=== PATIENT | male | born 1955 | race Caucasian/White ===

== ENCOUNTER 2016-12-10 16:31 | Inpatient (IN) | payer OTHER ==
[~2016-12-10] VITALS: Ht 175.3 cm; Wt 81.0 kg
[~2016-12-10 16:31] MED LIST: BENETAB PO; FURO20TA PO; LACTCAP8 PO; PANT40TA3 PO; Spironolactone PO; ZITH250T PO
[2016-12-10 16:32] VITALS: BP 97/70; PULSE 98; RESP 18; TEMP 97.6; O2SAT 98
--- NOTE | 2016-12-10 16:35 | PD ---
HPI Chief Complaint: GI BLEED Time Seen by Provider: 16:34 Travel History International Travel<30 days: No Contact w/Intl Traveler<30days: No Traveled to known affect area: No History of Present Illness HPI 61-year-old male with history of alcohol cirrhosis, HTN, GI bleed, coronary artery disease with stent placement, tobacco dependency, presents to the emergency department for evaluation of GI bleed. Patient reports beginning having alphonso red emesis this morning as well as black tarry stools. Patient was seen and evaluated, discharged October 23, 2016 following a GI bleed. He has been unable to follow-up and has not filled any medication since hospitalization, stating that he cannot afford them. He states he has been increasingly weak, absent the dizziness, some mild shortness of breath feels as though his abdomen is pushing up on his diaphragm. Patient has a rotund abdomen and states it has been worsening since discharge in October. Reports no fever or chills. He does report abdominal pain, generalized, constant. He has no other symptoms to report. PFSH Past Medical History Heart Rhythm Problems: No Cancer: No Cardiovascular Problems: Yes High Cholesterol: No Chest Pain: No Congestive Heart Failure: No Endocrine: No Gastrointestinal Disorders: Yes (Hepatomegaly, VARICES) GERD: No Genitourinary: No Hiatal Hernia: No Hypertension: Yes Immune Disorder: No Musculoskeletal: No Neurologic: No Psychiatric: No Respiratory: No Immunizations Current: Yes Thyroid Disease: No Ulcer: No Past Surgical History Abdominal Surgery: No Cardiac Surgery: Yes (stent placement) Ear Surgery: No Endocrine Surgery: No Eye Surgery: No Genitourinary Surgery: No Gynecologic Surgery: No Neurologic Surgery: No Oral Surgery: No Thoracic Surgery: No Other Surgery: Yes (cardiac stent placement) Social History Alcohol Use: Yes (Hx of ETOH abuse) Tobacco Use: Yes (1/2 ppd) Substance Use: No Allergies-Medications (Allergen,Severity, Reaction): Coded Allergies: Lisinopril (Verified Allergy, Severe, Anaphylaxis, 10/19/16) Reported Meds & Prescriptions Reported Meds & Active Scripts Active Probiotic (Lactobacillus Acidophilus) 1 Cap Cap 1 Cap PO TIDAC Benefiber (Wheat Dextrin) 1 Tab 1 Tab PO DAILY 30 Days Pantoprazole (Pantoprazole Sodium) 40 Mg Tab 40 Mg PO DAILY 30 Days Furosemide 20 Mg Tab 20 Mg PO DAILY 30 Days Reported Aldactone (Spironolactone) 25 Mg Tab 25 Mg PO DAILY Review of Systems Except as stated in HPI: all other systems reviewed are Neg Physical Exam Narrative GENERAL: Chronically ill-appearing male patient, sitting up in bed, in no acute distress SKIN: Warm and dry. Pallor HEAD: Atraumatic. Normocephalic. EYES: Pupils equal and round. No scleral icterus. No injection or drainage. ENT: No nasal bleeding or discharge. Mucous membranes pink and moist. NECK: Trachea midline. No JVD. CARDIOVASCULAR: Elevated rate and rhythm. No murmur appreciated. RESPIRATORY: No accessory muscle use. Diminished to auscultation. Breath sounds equal bilaterally. GASTROINTESTINAL: Abdomen rotund, distended, tender to palpation; guarding RUQ. No rebound tenderness. MUSCULOSKELETAL: No obvious deformities. No clubbing. No cyanosis. No edema. delayed cap refill. NEUROLOGICAL: Awake and alert. No obvious cranial nerve deficits. Motor grossly within normal limits. Normal speech. PSYCHIATRIC: Appropriate mood and affect; insight and judgment normal. Data Data Last Documented VS Vital Signs Date Time Temp Pulse Resp B/P Pulse Ox O2 Delivery O2 Flow Rate FiO2 12/10/16 16:54 16 97 Room Air 12/10/16 16:32 97.6 98 97/70 Orders Complete Blood Count With Diff (12/10/16 16:35) Comprehensive Metabolic Panel (12/10/16 16:35) Lipase (12/10/16 16:35) Ammonia (12/10/16 16:35) Prothrombin Time / Inr (Pt) (12/10/16 16:35) Act Partial Throm Time (Ptt) (12/10/16 16:35) Alcohol (Ethanol) (12/10/16 16:35) Urinalysis - C+S If Indicated (12/10/16 16:35) Type And Screen (12/10/16 16:35) Abdomen, Flat & Upright (12/10/16 16:35) Chest, Single Ap (12/10/16 16:35) Cath For Specimen (12/10/16 16:35) Ecg Monitoring (12/10/16 16:35) Iv Access Insert/Monitor (12/10/16 16:35) Oximetry (12/10/16 16:35) Sodium Chloride 0.9% Flush (Ns Flush) (12/10/16 16:45) Pantoprazole Inj (Protonix Inj) (12/10/16 16:45) Pantoprazole Inj (Protonix Inj) (12/10/16 16:45) I-Stat Profile (12/10/16 16:38) Red Blood Cells (Rbc) (12/10/16 16:40) Blood Product Administration .UPON TRANSFUSION (12/10/16 16:40) Sodium Chlor 0.9% 250 Ml Inj (Ns 250 Ml (12/10/16 16:45) I-Stat Creatinine (12/10/16 16:45) Sodium Chlorid 0.9% 500 Ml Inj (Ns 500 M (12/10/16 17:15) Octreotide Inj (Sandostatin Inj) (12/10/16 18:00) NPO (12/10/16 17:51) Admit Order (Ed Use Only) (12/10/16 17:55) Admit To Inpatient (12/10/16 ) Vital Signs (Adult) Q4H (12/10/16 17:56) Activity Oob With Assistance (12/10/16 17:56) ^ Building Cleaner / Telemetry .CONTINUOUS (12/10/16 17:56) Intake + Output GREY.QSHIFT (12/10/16 17:56) Diet Npo (12/10/16 Dinner) Sodium Chlor 0.9% 1000 Ml Inj (Ns 1000 M (12/10/16 17:56) Sodium Chloride 0.9% Flush (Ns Flush) (12/10/16 18:00) Sodium Chloride 0.9% Flush (Ns Flush) (12/10/16 21:00) Acetaminophen (Tylenol) (12/10/16 18:00) Ondansetron Inj (Zofran Inj) (12/10/16 18:00) Prochlorperazine Supp (Compazine Supp) (12/10/16 18:00) Bisacodyl Supp (Dulcolax Supp) (12/10/16 18:00) Magnesium Hydroxide Liq (Milk Of Magnesi (12/10/16 18:00) Sennosides (Senokot) (12/10/16 18:00) Temazepam (Restoril) (12/10/16 18:00) Basic Metabolic Panel (Bmp) (12/11/16 06:00) Complete Blood Count With Diff (12/11/16 06:00) Pt Request For Service (12/10/16 17:56) Case Management Consult (12/10/16 17:56) Scd Bilateral/Knee High GREY.BID (12/10/16 17:56) Braulio Bilateral/Knee High GREY.QSHIFT (12/10/16 17:56) Pharmacologic Contraindication (12/10/16 17:56) Inpatient Certification (12/10/16 ) Labs Laboratory Tests Test 12/10/16 12/10/16 12/10/16 16:15 16:40 16:45 Ammonia 46 MCMOL/L Crossmatch Leukocyte-Reduced Red Blood Cells Blood Bank Comment White Blood Count 9.3 TH/MM3 Red Blood Count 2.70 MIL/MM3 Hemoglobin 8.8 GM/DL Bedside Hemoglobin 8.8 G/DL Hematocrit 25.7 % Bedside Hematocrit 26.0 % Mean Corpuscular Volume 95.4 FL Mean Corpuscular Hemoglobin 32.7 PG Mean Corpuscular Hemoglobin 34.2 % Concent Red Cell Distribution Width 14.8 % Platelet Count 298 TH/MM3 Mean Platelet Volume 8.5 FL Neutrophils (%) (Auto) 62.1 % Lymphocytes (%) (Auto) 29.7 % Monocytes (%) (Auto) 6.6 % Eosinophils (%) (Auto) 0.5 % Basophils (%) (Auto) 1.1 % Neutrophils # (Auto) 5.7 TH/MM3 Lymphocytes # (Auto) 2.8 TH/MM3 Monocytes # (Auto) 0.6 TH/MM3 Eosinophils # (Auto) 0.0 TH/MM3 Basophils # (Auto) 0.1 TH/MM3 CBC Comment DIFF FINAL Differential Comment Prothrombin Time 13.4 SEC Prothromb Time International 1.2 RATIO Ratio Activated Partial 26.8 SEC Thromboplast Time Bedside Sodium 139 MMOL/L Sodium Level 139 MEQ/L Bedside Potassium 3.7 MMOL/L Potassium Level 4.0 MEQ/L Bedside Chloride 103 MMOL/L Chloride Level 105 MEQ/L Carbon Dioxide Level 24.0 MEQ/L Anion Gap 10 MEQ/L Bedside Blood Urea Nitrogen 20 MG/DL Blood Urea Nitrogen 21 MG/DL Creatinine 0.64 MG/DL Bedside Creatinine 0.5 MG/DL Estimat Glomerular Filtration 127 ML/MIN Rate Bedside Glucose 98 MG/DL Random Glucose 96 MG/DL Calcium Level 8.2 MG/DL Total Bilirubin 0.7 MG/DL Aspartate Amino Transf 22 U/L (AST/SGOT) Alanine Aminotransferase 15 U/L (ALT/SGPT) Alkaline Phosphatase 70 U/L Total Protein 6.7 GM/DL Albumin 1.9 GM/DL Lipase 116 U/L Ethyl Alcohol Level LESS THAN 3 MG/DL Blood Type A POSITIVE Antibody Screen NEGATIVE MDM Medical Decision Making Medical Screen Exam Complete: Yes Emergency Medical Condition: Yes Medical Record Reviewed: Yes Differential Diagnosis Esophageal varices versus PUD versus GI bleed upper versus lower versus perforation Narrative Course 61-year-old male presents to the emergency department for evaluation of alphonso red emesis and black tarry stools, acute onset this morning. Patient has history of alcohol cirrhosis as well as GI bleeds. He has been unable to follow -up since his discharge in October. Patient appears ill. He is moderately hypertensive with an elevated heart rate. Abdomen is distended and tender to palpate. Emesis is alphonso red and Hemoccult is positive. I discussed patient mentioning physician Dr. Rosales who has also assessed the patient. Lab work is sent. Patient is typed and crossed and 2 units of packed red blood cells are ordered. I-STAT hemoglobin is 8.8. At this time care is assumed by my attending physician. She will determine disposition. Diagnosis Primary Impression: Acute blood loss anemia Additional Impressions: GI bleed Qualified Code: K92.2 - Gastrointestinal hemorrhage, unspecified gastrointestinal hemorrhage type Cirrhosis Qualified Code: K70.31 - Alcoholic cirrhosis of liver with ascites Condition: Stable Mariella Ramos Dec 10, 2016 16:34
[2016-12-10] MEDS ORDERED: SODIUM CHLORIDE 0.9% FLUSH 5 ML FLUSH IVF PRN (16:45)
[2016-12-10] MEDS ORDERED: PANTOPRAZOLE INJ 80 MG in SODIUM CHLORIDE 0.9% INJ 100 ML IV SCH (16:45)
[2016-12-10] MEDS ORDERED: SODIUM CHLOR 0.9% 250 ML INJ 250 ML IV ONE (16:45)
[2016-12-10] MEDS ORDERED: PANTOPRAZOLE INJ 80 MG in SODIUM CHLORIDE 0.9% INJ 35 ML IV ONE (16:45)
[2016-12-10 16:54] VITALS: RESP 16; O2SAT 97
[2016-12-10 17:11] LABS: AUTOMATED NEUTROPHIL # 5.7 TH/MM3 (1.8-7.7); BASOPHIL # 0.1 TH/MM3 (0-0.2); BASOPHIL % 1.1 % (0.0-2.0); EOSINOPHIL % 0.5 % (0.0-4.0); HEMATOCRIT 25.7 % (39.0-51.0); HEMO FLAGS DIFF FINAL; LYMPH % 29.7 % (9.0-44.0); LYMPHOCYTE # 2.8 TH/MM3 (1.0-4.8); MEAN CELL VOLUME 95.4 FL (80.0-100.0); MEAN CORPUSCULAR HEMOGLOBIN 32.7 PG (27.0-34.0); MEAN CORPUSCULAR HGB CONC 34.2 % (32.0-36.0); MONO % 6.6 % (0.0-8.0); NEUT % 62.1 % (16.0-70.0); PLATELET COUNT 298 TH/MM3 (150-450); RED CELL DISTRIBUTION WIDTH 14.8 % (11.6-17.2); WHITE BLOOD COUNT 9.3 TH/MM3 (4.0-11.0)
[2016-12-10 17:15] LABS: I-STAT POTASSIUM 3.7 MMOL/L (3.5-4.9)
[2016-12-10] MEDS ORDERED: SODIUM CHLORID 0.9% 500 ML INJ 500 ML IV ONE (17:15)
[2016-12-10 17:16] LABS: APTT (PATIENT) 26.8 SEC (24.3-30.1); INTERNATIONAL NORMALIZED RATIO 1.2 RATIO; PROTHROMBIN TIME - PATIENT 13.4 SEC (9.8-11.6)
--- NOTE | 2016-12-10 17:22 | RADRPT ---
EXAM DATE/TIME: 12/10/2016 17:02 [facility] COMPARISON: CT ABDOMEN & PELVIS W CONTRAST, October 21, 2016, 18:48. US GUIDED ABD PARACENTESIS, October 22 016, 15:33. ABDOMEN FLAT & UPRIGHT, June 25, 2016, 3:44. INDICATIONS : Blood loss. MEDICAL HISTORY : Ascites SURGICAL HISTORY : None. ENCOUNTER: Initial ACUITY: 1 day PAIN SCORE: 5/10 LOCATION: Bilateral abdomen FINDINGS: There is a paucity of bowel gas which often times is related to diffuse ascites. No bowel obstruction or ileus is noted. Degenerative changes are noted involving the lumbar and lower thoracic spine. CONCLUSION: Paucity of bowel gas which often times is related to diffuse ascites. Clinical correlation is recomme nded. Buddy Valentine MD on December 10, 2016 at 17:18 Board Certified Radiologist. This report was verified electronically.
[2016-12-10] MEDS ORDERED: SPIR25 PO (17:24)
[2016-12-10 17:27] LABS: ALT (GPT) 15 U/L (12-78); ANION GAP 10 MEQ/L (5-15); AST (GOT) 22 U/L (15-37); BLOOD UREA NITROGEN 21 MG/DL (7-18); CHLORIDE 105 MEQ/L (98-107); GLOMERULAR FILTRATION RATE 127 ML/MIN (>89); SODIUM (NA) 139 MEQ/L (136-145)
--- NOTE | 2016-12-10 17:29 | RADRPT ---
EXAM DATE/TIME: 12/10/2016 17:00 [facility] COMPARISON: CHEST SINGLE AP, October 19, 2016, 21:06. INDICATIONS : Shortness of breath MEDICAL HISTORY : Ascites SURGICAL HISTORY : None. ENCOUNTER: Initial ACUITY: 1 day PAIN SCORE: 5/10 LOCATION: Bilateral chest FINDINGS: Discoid atelectasis is noted within the left lung base. There is a suboptimal inspiration. The heart is stable. The right lung is clear. CONCLUSION: 1. Discoid atelectasis within the left lung base. 2. Suboptimal inspiration. Buddy Valentine MD on December 10, 2016 at 17:17 Board Certified Radiologist. This report was verified electronically.
[2016-12-10 17:30] LABS: ALKALINE PHOSPHATASE 70 U/L (45-117); TOTAL BILIRUBIN ADULT 0.7 MG/DL (0.2-1.0)
--- NOTE | 2016-12-10 17:58 | PD ---
Physical Exam Date Seen by Provider: Dec 10, 2016 Time Seen by Provider: 17:30 Narrative I, Dr. Rosales, have reviewed the advance practice practitioner's documentation and am in agreement, met with the patient face to face, made the diagnosis, and the medical decision making was done by me. *My assessment and Findings: Patient seen and evaluated with nurse practitioner , please see [employer]AR[employer]IMAL HUSBANDRY TECHNICIAN note for further details. Patient with recent history of cirrhosis, GI bleed, here again with GI bleeding, vomiting blood and dark tarry stools Hemoccult positive. Vital signs are stable in the ER. IV fluids were initiated in the ER and due to ongoing bleeding, blood was ordered for the patient. Protonix and octreotide ordered in the ER. The case was discussed with Drs. English of GI and he would like me to keep the patient nothing by mouth, and plans for EGD tomorrow. Case was then discussed with Dr. Gutierrez for admission. Laboratory Tests Test 12/10/16 12/10/16 16:15 16:45 Ammonia 46 MCMOL/L (11-32) Red Blood Count 2.70 MIL/MM3 (4.50-5.90) Hemoglobin 8.8 GM/DL (13.0-17.0) Bedside Hemoglobin 8.8 G/DL (12.0-17.0) Hematocrit 25.7 % (39.0-51.0) Bedside Hematocrit 26.0 % (38.0-51.0) Prothrombin Time 13.4 SEC (9.8-11.6) Blood Urea Nitrogen 21 MG/DL (7-18) Bedside Creatinine 0.5 MG/DL (0.8-1.3) Bedside Glucose 98 MG/DL (60-95) Calcium Level 8.2 MG/DL (8.5-10.1) Albumin 1.9 GM/DL (3.4-5.0) Data Data Last Documented VS Vital Signs Date Time Temp Pulse Resp B/P Pulse Ox O2 Delivery O2 Flow Rate FiO2 12/10/16 16:54 16 97 Room Air 12/10/16 16:32 97.6 98 97/70 Orders Complete Blood Count With Diff (12/10/16 16:35) Comprehensive Metabolic Panel (12/10/16 16:35) Lipase (12/10/16 16:35) Ammonia (12/10/16 16:35) Prothrombin Time / Inr (Pt) (12/10/16 16:35) Act Partial Throm Time (Ptt) (12/10/16 16:35) Alcohol (Ethanol) (12/10/16 16:35) Urinalysis - C+S If Indicated (12/10/16 16:35) Type And Screen (12/10/16 16:35) Abdomen, Flat & Upright (12/10/16 16:35) Chest, Single Ap (12/10/16 16:35) Cath For Specimen (12/10/16 16:35) Ecg Monitoring (12/10/16 16:35) Iv Access Insert/Monitor (12/10/16 16:35) Oximetry (12/10/16 16:35) Sodium Chloride 0.9% Flush (Ns Flush) (12/10/16 16:45) Pantoprazole Inj (Protonix Inj) (12/10/16 16:45) Pantoprazole Inj (Protonix Inj) (12/10/16 16:45) I-Stat Profile (12/10/16 16:38) Red Blood Cells (Rbc) (12/10/16 16:40) Blood Product Administration .UPON TRANSFUSION (12/10/16 16:40) Sodium Chlor 0.9% 250 Ml Inj (Ns 250 Ml (12/10/16 16:45) I-Stat Creatinine (12/10/16 16:45) Sodium Chlorid 0.9% 500 Ml Inj (Ns 500 M (12/10/16 17:15) Octreotide Inj (Sandostatin Inj) (12/10/16 18:00) NPO (12/10/16 17:51) Labs Laboratory Tests Test 12/10/16 12/10/16 12/10/16 16:15 16:40 16:45 Ammonia 46 MCMOL/L Crossmatch Leukocyte-Reduced Red Blood Cells Blood Bank Comment White Blood Count 9.3 TH/MM3 Red Blood Count 2.70 MIL/MM3 Hemoglobin 8.8 GM/DL Bedside Hemoglobin 8.8 G/DL Hematocrit 25.7 % Bedside Hematocrit 26.0 % Mean Corpuscular Volume 95.4 FL Mean Corpuscular Hemoglobin 32.7 PG Mean Corpuscular Hemoglobin 34.2 % Concent Red Cell Distribution Width 14.8 % Platelet Count 298 TH/MM3 Mean Platelet Volume 8.5 FL Neutrophils (%) (Auto) 62.1 % Lymphocytes (%) (Auto) 29.7 % Monocytes (%) (Auto) 6.6 % Eosinophils (%) (Auto) 0.5 % Basophils (%) (Auto) 1.1 % Neutrophils # (Auto) 5.7 TH/MM3 Lymphocytes # (Auto) 2.8 TH/MM3 Monocytes # (Auto) 0.6 TH/MM3 Eosinophils # (Auto) 0.0 TH/MM3 Basophils # (Auto) 0.1 TH/MM3 CBC Comment DIFF FINAL Differential Comment Prothrombin Time 13.4 SEC Prothromb Time International 1.2 RATIO Ratio Activated Partial 26.8 SEC Thromboplast Time Bedside Sodium 139 MMOL/L Sodium Level 139 MEQ/L Bedside Potassium 3.7 MMOL/L Potassium Level 4.0 MEQ/L Bedside Chloride 103 MMOL/L Chloride Level 105 MEQ/L Carbon Dioxide Level 24.0 MEQ/L Anion Gap 10 MEQ/L Bedside Blood Urea Nitrogen 20 MG/DL Blood Urea Nitrogen 21 MG/DL Creatinine 0.64 MG/DL Bedside Creatinine 0.5 MG/DL Estimat Glomerular Filtration 127 ML/MIN Rate Bedside Glucose 98 MG/DL Random Glucose 96 MG/DL Calcium Level 8.2 MG/DL Total Bilirubin 0.7 MG/DL Aspartate Amino Transf 22 U/L (AST/SGOT) Alanine Aminotransferase 15 U/L (ALT/SGPT) Alkaline Phosphatase 70 U/L Total Protein 6.7 GM/DL Albumin 1.9 GM/DL Lipase 116 U/L Ethyl Alcohol Level LESS THAN 3 MG/DL Blood Type A POSITIVE Antibody Screen NEGATIVE [facility] Medical Record Reviewed: Yes Supervised Visit with ARCADIO: Yes Diagnosis Primary Impression: GI bleed Admitting Information Admitting Physician Requests: Admit Condition: Stable Atiya Rosales MD Dec 10, 2016 17:58
[2016-12-10] MEDS ORDERED: BISACODYL 10 MG SUPP PR PRN (18:00)
[2016-12-10] MEDS ORDERED: SENNOSIDES 8.6 MG TAB PO PRN (18:00)
[2016-12-10] MEDS ORDERED: ONDANSETRON HCL 4 MG/2 ML VIAL IVP PRN (18:00)
[2016-12-10] MEDS ORDERED: SODIUM CHLORIDE 0.9% FLUSH 5 ML FLUSH FLUSH PRN (18:00)
[2016-12-10] MEDS ORDERED: PROCHLORPERAZINE 25 MG SUPP PR PRN (18:00)
[2016-12-10] MEDS ORDERED: TEMAZEPAM 15 MG CAP PO PRN (18:00)
[2016-12-10] MEDS ORDERED: MAGNESIUM HYDROXIDE SUSP 30 ML CUP PO PRN (18:00)
[2016-12-10] MEDS ORDERED: ACETAMINOPHEN 325 MG TAB PO PRN (18:00)
[2016-12-10] MEDS: OCTREOTIDE INJ 500 MCG in SODIUM CHLORID 0.9% 500 ML INJ 500 ML IV SCH (18:46)
--- NOTE | 2016-12-10 18:57 | HHI.HP ---
[facility] Primary Care Physician Admission Diagnosis GI bleed Diagnoses: Chief Complaint: gi bleed Travel History International Travel<30 Days: No Contact w/Intl Traveler <30 Da: No Traveled to Known Affected Are: No History of Present Illness 61-year-old male with PMH of Alcohol Abuse, alcoholic Cirrhosis, gastric esophageal varices with band ligation in the past, h/o multiple GI Bleed, CAD with stent placement and Tobacco Abuse who came to the ER with GIB. 61-year-old male with history of alcohol cirrhosis, HTN, GI bleed, coronary artery disease with stent placement, tobacco dependency, presents to the emergency department for evaluation of GI bleed. Patient reports beginning having alphonso red emesis this morning as well as black tarry stools. Patient was seen and evaluated, discharged October 23, 2016 following a GI bleed. He has been unable to follow-up and has not filled any medication since hospitalization, stating that he cannot afford them. He states he has been increasingly weak, absent the dizziness, some mild shortness of breath feels as though his abdomen is pushing up on his diaphragm. Patient has a rotund abdomen and states it has been worsening since discharge in October. Reports no fever or chills. He does report abdominal pain, generalized, constant. He has no other symptoms to report. H/H stable, GI consulted Dr Kong recommends NPO and will do EGD tomorrow. Started IV protonix and octreotide. 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 And another cup while in ED. Says he is not vomiting much since IV meds started. Review of Systems Constitutional: DENIES: Fever, Chills, Change in appetite Endocrine: DENIES: Heat/cold intolerance Eyes: DENIES: Blurred vision, Eye pain Ears, nose, mouth, throat: DENIES: Tinnitus, Hearing loss, Vertigo, Nasal discharge, Oral lesions, Throat pain, Hoarseness, Ear Pain, Running Nose, Epistaxis, Sinus Pain, Toothache, Odynophagia Respiratory: DENIES: Apneas, Cough, Snoring, Wheezing, Hemoptysis, Sputum production, Shortness of breath Cardiovascular: DENIES: Chest pain, Palpitations, Syncope, Dyspnea on Exertion , PND, Lower Extremity Edema, Orthopnea, Claudication Gastrointestinal: DENIES: Abdominal pain, Black stools, Bloody stools, Constipation, Diarrhea, Nausea, Vomiting, Difficulty Swallowing, Anorexia Genitourinary: COMPLAINS OF: Sexual dysfunction, Urinary frequency, Urinary incontinence, Nocturia, Penile Discharge, Testicular Pain, Testicular Swelling, DENIES: Urgency, Hematuria, Dysuria Integumentary: DENIES: Rash Neurologic: DENIES: Abnormal gait, Headache, Localized weakness, Paresthesias, Seizures, Speech Problems, Tremor, Poor Balance Psychiatric: DENIES: Anxiety, Depression Past Family Social History Past Medical History Alcohol Abuse, Cirrhosis, h/o GI Bleed, CAD and Tobacco Abuse Past Surgical History Cardiac Stent Allergies: Coded Allergies: Lisinopril (Verified Allergy, Severe, Anaphylaxis, 10/19/16) Family History No h/o DM or CAD Social History History of alcohol abuse. Smokes 1/2ppd. Negative for drugs. Physical Exam Vital Signs Vital Signs Date Time Temp Pulse Resp B/P Pulse Ox O2 Delivery O2 Flow Rate FiO2 12/10/16 16:54 16 97 Room Air 12/10/16 16:36 18 12/10/16 16:32 97.6 98 18 97/70 98 Physical Exam GENERAL: This is a well-nourished, well-developed patient, in no apparent distress. SKIN: Pale. No rashes, ecchymoses or lesions. Cool and dry. HEAD: Atraumatic. Normocephalic. No temporal or scalp tenderness. EYES: Pupils equal round and reactive. Extraocular motions intact. No scleral icterus. No injection or drainage. ENT: Nose without bleeding, purulent drainage or septal hematoma. Throat without erythema, tonsillar hypertrophy or exudate. Uvula midline. Airway patent. NECK: Trachea midline. No JVD or lymphadenopathy. Supple, nontender, no meningeal signs. CARDIOVASCULAR: Regular rate and rhythm without murmurs, gallops, or rubs. RESPIRATORY: Clear to auscultation. Breath sounds equal bilaterally. No wheezes , rales, or rhonchi. GASTROINTESTINAL: Abdomen soft, mild tenderness on palpation RUQ, ascites present, distended. No guarding. MUSCULOSKELETAL: Extremities without clubbing, cyanosis, or edema. No joint tenderness, effusion, or edema noted. No calf tenderness. Negative Homans sign bilaterally. NEUROLOGICAL: Awake and alert. Cranial nerves II through XII intact. Motor and sensory grossly within normal limits. Five out of 5 muscle strength in all muscle groups. Normal speech. Laboratory Laboratory Tests Test 12/10/16 12/10/16 12/10/16 16:15 16:40 16:45 Ammonia 46 Crossmatch Leukocyte-Reduced Red Blood Cells Blood Bank Comment White Blood Count 9.3 Red Blood Count 2.70 Hemoglobin 8.8 Bedside Hemoglobin 8.8 Hematocrit 25.7 Bedside Hematocrit 26.0 Mean Corpuscular Volume 95.4 Mean Corpuscular Hemoglobin 32.7 Mean Corpuscular Hemoglobin 34.2 Concent Red Cell Distribution Width 14.8 Platelet Count 298 Mean Platelet Volume 8.5 Neutrophils (%) (Auto) 62.1 Lymphocytes (%) (Auto) 29.7 Monocytes (%) (Auto) 6.6 Eosinophils (%) (Auto) 0.5 Basophils (%) (Auto) 1.1 Neutrophils # (Auto) 5.7 Lymphocytes # (Auto) 2.8 Monocytes # (Auto) 0.6 Eosinophils # (Auto) 0.0 Basophils # (Auto) 0.1 CBC Comment DIFF FINAL Differential Comment Prothrombin Time 13.4 Prothromb Time International 1.2 Ratio Activated Partial 26.8 Thromboplast Time Bedside Sodium 139 Sodium Level 139 Bedside Potassium 3.7 Potassium Level 4.0 Bedside Chloride 103 Chloride Level 105 Carbon Dioxide Level 24.0 Anion Gap 10 Bedside Blood Urea Nitrogen 20 Blood Urea Nitrogen 21 Creatinine 0.64 Bedside Creatinine 0.5 Estimat Glomerular Filtration 127 Rate Bedside Glucose 98 Random Glucose 96 Calcium Level 8.2 Total Bilirubin 0.7 Aspartate Amino Transf 22 (AST/SGOT) Alanine Aminotransferase 15 (ALT/SGPT) Alkaline Phosphatase 70 Total Protein 6.7 Albumin 1.9 Lipase 116 Ethyl Alcohol Level LESS THAN 3 Blood Type A POSITIVE Antibody Screen NEGATIVE Result Diagram: 12/10/16 1645 12/10/16 164 Imaging Last Impressions Chest X-Ray 12/10/16 1635 Signed Impressions: Service Date/Time: Saturday, December 10, 2016 17:00 - CONCLUSION: 1. Discoid atelectasis within the left lung base. 2. Suboptimal inspiration. Buddy Valentine MD Abdomen X-Ray 1/10/17 2236 Signed Impressions: Service Date/Time: Saturday, December 10, 2016 17:02 - CONCLUSION: Paucity of bowel gas which often times is related to diffuse ascites. Clinical correlation is recommended. Buddy Valentine MD Assessment and Plan Assessment and Plan GI Bleed: H/o Alcohol Abuse, Cirrhosis and Esophageal Varices, previous admissions with GI Bleed s/p EGD w/ medium varies and band ligation x3. H/H stable no transfusion at this time. GI consulted, plan is for EGD in am. NPO, IVF. Continue Protonix/Octreotide gtt. Add incentive spirometry Alcohol Abuse: H/o Alcohol Abuse. Says he cut down and not drinking much. Tobacco Abuse: Pt counselled on the need to quit. Ativan prn. DVT Prophylaxis: SCD/TEDs. Pharmacologic contraindication secondary to acute GI Bleed. CM for d/c planning as needed. Code Status full code Discussed Condition With patient, nurse, ED physician Physician Certification 2 Midnight Certification Type: Admission for Inpatient Services Order for Inpatient Services The services are ordered in accordance with Medicare regulations or non- Medicare payer requirements, as applicable. In the case of services not specified as inpatient-only, they are appropriately provided as inpatient services in accordance with the 2-midnight benchmark. Estimated LOS (days): 3 days is the estimated time the patient will need to remain in the hospital, assuming treatment plan goals are met and no additional complications. Post-Hospital Plan: Home Cele Gutierrez MD Dec 10, 2016 18:57
[2016-12-10 19:30] VITALS: BP 144/72; PULSE 88; RESP 16; O2SAT 99
[2016-12-10] MEDS: SODIUM CHLORIDE 0.9% FLUSH 5 ML FLUSH FLUSH SCH (20:05)
[2016-12-10 21:30] VITALS: BP 139/68; PULSE 84; RESP 16; O2SAT 99
[2016-12-10 21:32] LABS: HEMATOCRIT 23.1 % (39.0-51.0); REVIEW FLAG FINAL
[2016-12-10 23:30] VITALS: BP 151/79; PULSE 77; RESP 16; O2SAT 99
[2016-12-11] VITALS (13 sets, daily range): BP systolic 119–149; BP diastolic 60–91; PULSE 52–94; RESP 12–22; TEMP 97.5–98.1; O2SAT 93–100
[2016-12-11] MEDS: SODIUM CHLOR 0.9% 1000 ML INJ 1,000 ML IV SCH ×3 (00:03→15:29)
[2016-12-11] MEDS: OCTREOTIDE INJ 500 MCG in SODIUM CHLORID 0.9% 500 ML INJ 500 ML IV SCH ×2 (04:40→15:54)
[2016-12-11 05:50] LABS: BLOOD, URINE NEG (NEG); GLUCOSE,URINE NEG (NEG); HYALINE CAST, URINE 13 /lpf (RARE); KETONE, URINE NEG (NEG); MUCUS URINE MANY /lpf (OCC); NITRITE,URINE NEG (NEG); PH, URINE 5.5 (5.0-8.5); SQUAMOUS EPITHELIAL CELL URINE <1 /hpf (0-5); URINE COLOR YELLOW (YELLW/STRAW)
[2016-12-11 05:52] LABS: COMMENT (UR) CULT NOT INDICATED; CULTURE IF INDICATED CULT NOT INDICATED
[2016-12-11] MEDS: LACTOBACILLUS ACIDOPHILUS TAB PO SCH ×3 (08:00→17:00)
--- NOTE | 2016-12-11 08:20 | HHI.PR ---
Subjective Remarks Did not vomit blood since last night. He had diarrhea bloody last night but none since then. Pain is controlled by meds. Also patient denies any fevers or chills. No n/v/d/c. Plan for EGD Objective Vitals Vital Signs Date Time Temp Pulse Resp B/P Pulse Ox O2 Delivery O2 Flow Rate FiO2 12/11/16 05:55 98.1 65 16 136/80 100 Room Air 12/11/16 04:12 98.0 73 16 119/69 96 Room Air 12/11/16 03:24 97.7 77 16 148/86 97 Room Air 12/11/16 00:16 98.0 77 16 136/78 100 Room Air 12/11/16 00:00 97.9 82 16 148/78 97 Room Air 12/10/16 23:30 77 16 151/79 99 12/10/16 21:30 84 16 139/68 99 12/10/16 19:30 88 16 144/72 99 12/10/16 16:54 16 97 Room Air 12/10/16 16:36 18 12/10/16 16:32 97.6 98 18 97/70 98 I/O 12/10/16 12/10/16 12/10/16 12/11/16 12/11/16 12/11/16 07:00 15:00 23:00 07:00 15:00 23:00 Intake Total 500 ml Balance 500 ml Intake Packed Cells 500 ml Result Diagram: 12/10/160 12/10/16 1645 Imaging Last Impressions Chest X-Ray 12/10/16 1635 Signed Impressions: Service Date/Time: Saturday, December 10, 2016 17:00 - CONCLUSION: 1. Discoid atelectasis within the left lung base. 2. Suboptimal inspiration. Buddy Valentine MD Abdomen X-Ray 12/10/16 1635 Signed Impressions: Service Date/Time: Saturday, December 10, 2016 17:02 - CONCLUSION: Paucity of bowel gas which often times is related to diffuse ascites. Clinical correlation is recommended. Buddy Valentine MD Objective Remarks GENERAL: This is a well-nourished, well-developed patient, in no apparent distress. SKIN: Pale. No rashes, ecchymoses or lesions. Cool and dry. HEAD: Atraumatic. Normocephalic. No temporal or scalp tenderness. EYES: Pupils equal round and reactive. Extraocular motions intact. No scleral icterus. No injection or drainage. ENT: Nose without bleeding, purulent drainage or septal hematoma. Throat without erythema, tonsillar hypertrophy or exudate. Uvula midline. Airway patent. NECK: Trachea midline. No JVD or lymphadenopathy. Supple, nontender, no meningeal signs. CARDIOVASCULAR: Regular rate and rhythm without murmurs, gallops, or rubs. RESPIRATORY: Clear to auscultation. Breath sounds equal bilaterally. No wheezes , rales, or rhonchi. GASTROINTESTINAL: Abdomen soft, mild tenderness on palpation RUQ, ascites present, distended. No guarding. MUSCULOSKELETAL: Extremities without clubbing, cyanosis, or edema. No joint tenderness, effusion, or edema noted. No calf tenderness. Negative Homans sign bilaterally. NEUROLOGICAL: Awake and alert. Cranial nerves II through XII intact. Motor and sensory grossly within normal limits. Five out of 5 muscle strength in all muscle groups. Normal speech. A/P Assessment and Plan GI Bleed: H/o Alcohol Abuse, Cirrhosis and Esophageal Varices, previous admissions with GI Bleed s/p EGD w/ medium varies and band ligation x3. H/H stable no transfusion at this time. GI consulted, plan is for EGD in am. NPO, IVF. Continue Protonix/Octreotide gtt. Add incentive spirometry H/H dropped but not significantly. Plan for EGD 12/11, discussed with GI service Alcohol Abuse: H/o Alcohol Abuse. Says he cut down and not drinking much. Tobacco Abuse: Pt counselled on the need to quit. Ativan prn. DVT Prophylaxis: SCD/TEDs. Pharmacologic contraindication secondary to acute GI Bleed. CM for d/c planning as needed. Code Status full code Discussed Condition With patient, nurse Cele Gutierrez MD Dec 11, 2016 08:20
[2016-12-11] MEDS: PANTOPRAZOLE SOD 40 MG DELAYED RELEASE TAB PO SCH (09:00)
[2016-12-11] MEDS ORDERED: WHEAT DEXTRIN PO SCH (09:00)
[2016-12-11] MEDS: FUROSEMIDE 20 MG TAB PO SCH (09:00)
[2016-12-11] MEDS: SPIRONOLACTONE 25 MG TAB PO SCH (09:00)
[2016-12-11] MEDS: SODIUM CHLORIDE 0.9% FLUSH 5 ML FLUSH FLUSH SCH ×2 (09:00→21:00)
--- NOTE | 2016-12-11 09:28 | PD.CONS ---
HPI History of Present Illness This is a 61 year old year old male patient with a hx of liver cirrhosis, esophageal varices who came to the ER for evaluation of upper GI bleeding consisting of nausea and vomiting with coffee ground emesis and melena. He reports that his symptoms began yesterday afternoon. He has associated epigastric discomfort described as burning that radiates to his back. He also had severe heartburn yesterday. These symptoms are aggravated by po intake. He also complains of severe muscle weakness. He states he will occasionally get this, but has not had it for quite some time. He denies any weight loss, fever , chills. He also has significant ascites. He reports that he had this drained the last time he was here. He was taking spironolactone and furosemide until he ran out several weeks ago. His ascites has progressively been getting worse. He was evaluated with EGD (10/21/16)---> bile present in stomach suctioned, gastritis antrum, duodenitis second portion biopsy, extrinsic compression, esopahgeal varices-grade 1, retroflexed views revealed a hiatal hernia, pathology with small intestinal mucosal biopsy with acute nonspecific duodenitis ileitis, gastric antral mucosal biopsy with severe chronic gastritis exhibiting extensive intestinal metaplasia negative for dysplasia, kofi stain negative for helicobacter Colonoscopy (10/23/16)-----> polyp sessile midtransverse-hot snare polypectomy-6 mm biopsy of base, due to large amount of stool unclear if retrieved or not in the trap, retroflexed views revealed small internal hemorrhoids, revealed no abnormalities of the rectum. Pathology with mid transverse colon with tubular adenoma. CT Scan abdomen and pelvis (10/21/16 ) with and without contrast with large amount of abdominal ascites, wall thickening within the splenic flexure, colonoscopy recommended to exclude underlying pathology, heterogeneous liver likely cirrhosis. He is not currently drinking any ETOH and does not take NSAIDs. He was taking protonix, but states he ran out a few weeks ago. (Samia Medina) PFSH Past Medical History Liver cirrhosis Ascites Esophageal varices CAD HTN Gastritis Colon polyps Past Surgical History Cardiac catheterization with stent placement EGD/Colonoscopy (Samia Medina) Coded Allergies: Lisinopril (Verified Allergy, Severe, Anaphylaxis, 10/19/16) Medications Allergies Coded Allergies Type Severity Reaction Last Updated Verified Lisinopril Allergy Severe Anaphylaxis 10/19/16 Yes Active Scripts Medications Dose Route/Sig Days Date Category Aldactone (Spironolactone) 25 Mg Tab 25 Mg PO DAILY 12/10/16 Reported Probiotic (Lactobacillus Acidophilus) 1 Cap Cap 1 Cap PO TIDAC 10/23/16 Rx Benefiber (Wheat Dextrin) 1 Tab 1 Tab PO DAILY 30 10/23/16 Rx Pantoprazole (Pantoprazole Sodium) 40 Mg Tab 40 Mg PO DAILY 30 10/23/16 Rx Furosemide 20 Mg Tab 20 Mg PO DAILY 30 10/23/16 Rx Family History History of lung cancer in his sister. Denies any other family history including CAD. No family hx of esophageal, gastric, or colorectal cancer Social History Smokes 1/2 pack, has smoked x 45 years Was drinking heavily one year ago, stopped "awhile ago" cannot state when No illicit drug use. (Samia Medina) Review of Systems Constitutional: COMPLAINS OF: Diaphoretic episodes, Fatigue, Change in appetite , DENIES: Fever, Weight loss, Chills Respiratory: DENIES: Cough, Shortness of breath Cardiovascular: DENIES: Chest pain Gastrointestinal: COMPLAINS OF: Abdominal pain, Black stools, Nausea, Vomiting , Heartburn, Hematemesis, DENIES: Bloody stools, Constipation Musculoskeletal: DENIES: Joint pain, Back pain Integumentary: DENIES: Abnormal pigmentation, Rash Hematologic/lymphatic: DENIES: Bruising Neurologic: DENIES: Headache Psychiatric: DENIES: Confusion (Samia Medina) GI Exam Vitals I&O Vital Signs Date Time Temp Pulse Resp B/P Pulse Ox O2 Delivery O2 Flow Rate FiO2 12/11/16 07:00 54 16 131/69 95 Room Air 12/11/16 05:55 98.1 65 16 136/80 100 Room Air 12/11/16 04:12 98.0 73 16 119/69 96 Room Air 12/11/16 03:24 97.7 77 16 148/86 97 Room Air 12/11/16 00:16 98.0 77 16 136/78 100 Room Air 12/11/16 00:00 97.9 82 16 148/78 97 Room Air 12/10/16 23:30 77 16 151/79 99 12/10/16 21:30 84 16 139/68 99 12/10/16 19:30 88 16 144/72 99 12/10/16 16:54 16 97 Room Air 12/10/16 16:36 18 12/10/16 16:32 97.6 98 18 97/70 98 I/O 12/10/16 12/10/16 12/10/16 12/11/16 12/11/16 12/11/16 07:00 15:00 23:00 07:00 15:00 23:00 Intake Total 500 ml Balance 500 ml Intake Packed Cells 500 ml Imaging Last Impressions Chest X-Ray 12/10/16 1635 Signed Impressions: Service Date/Time: Saturday, December 10, 2016 17:00 - CONCLUSION: 1. Discoid atelectasis within the left lung base. 2. Suboptimal inspiration. Buddy Valentine MD Abdomen X-Ray 12/10/16 1635 Signed Impressions: Service Date/Time: Saturday, December 10, 2016 17:02 - CONCLUSION: Paucity of bowel gas which often times is related to diffuse ascites. Clinical correlation is recommended. Buddy Valentine MD Laboratory Test 12/10/16 12/10/16 12/10/16 12/10/16 16:15 16:40 16:45 21:10 Ammonia 46 MCMOL/L Crossmatch Leukocyte-Reduced Red Blood Cells Blood Bank Comment White Blood Count 9.3 TH/MM3 Red Blood Count 2.70 MIL/MM3 Hemoglobin 8.8 GM/DL 7.9 GM/DL Bedside Hemoglobin 8.8 G/DL Hematocrit 25.7 % 23.1 % Bedside Hematocrit 26.0 % Mean Corpuscular Volume 95.4 FL Mean Corpuscular Hemoglobin 32.7 PG Mean Corpuscular Hemoglobin 34.2 % Concent Red Cell Distribution Width 14.8 % Platelet Count 298 TH/MM3 Mean Platelet Volume 8.5 FL Neutrophils (%) (Auto) 62.1 % Lymphocytes (%) (Auto) 29.7 % Monocytes (%) (Auto) 6.6 % Eosinophils (%) (Auto) 0.5 % Basophils (%) (Auto) 1.1 % Neutrophils # (Auto) 5.7 TH/MM3 Lymphocytes # (Auto) 2.8 TH/MM3 Monocytes # (Auto) 0.6 TH/MM3 Eosinophils # (Auto) 0.0 TH/MM3 Basophils # (Auto) 0.1 TH/MM3 CBC Comment DIFF FINAL Differential Comment Prothrombin Time 13.4 SEC Prothromb Time International 1.2 RATIO Ratio Activated Partial 26.8 SEC Thromboplast Time Bedside Sodium 139 MMOL/L Sodium Level 139 MEQ/L Bedside Potassium 3.7 MMOL/L Potassium Level 4.0 MEQ/L Bedside Chloride 103 MMOL/L Chloride Level 105 MEQ/L Carbon Dioxide Level 24.0 MEQ/L Anion Gap 10 MEQ/L Bedside Blood Urea Nitrogen 20 MG/DL Blood Urea Nitrogen 21 MG/DL Creatinine 0.64 MG/DL Bedside Creatinine 0.5 MG/DL Estimat Glomerular Filtration 127 ML/MIN Rate Bedside Glucose 98 MG/DL Random Glucose 96 MG/DL Calcium Level 8.2 MG/DL Total Bilirubin 0.7 MG/DL Aspartate Amino Transf 22 U/L (AST/SGOT) Alanine Aminotransferase 15 U/L (ALT/SGPT) Alkaline Phosphatase 70 U/L Total Protein 6.7 GM/DL Albumin 1.9 GM/DL Lipase 116 U/L Ethyl Alcohol Level LESS THAN 3 MG/DL Blood Type A POSITIVE Antibody Screen NEGATIVE Test 12/11/16 05:00 Urine Color YELLOW Urine Turbidity HAZY Urine pH 5.5 Urine Specific [place] 1.029 Urine Protein TRACE mg/dL Urine Glucose (UA) NEG mg/dL Urine Ketones NEG mg/dL Urine Occult Blood NEG Urine Nitrite NEG Urine Bilirubin NEG Urine Urobilinogen LESS THAN 2.0 MG/DL Urine Leukocyte Esterase NEG Urine RBC 1 /hpf Urine WBC 4 /hpf Urine Squamous Epithelial <1 /hpf Cells Urine Hyaline Casts 13 /lpf Urine Mucus MANY /lpf Microscopic Urinalysis Comment CULT NOT INDICATED Physical Examination HEENT: Pupils round and reactive to light; normocephalic; atraumatic; no jaundice. Throat is clear. NECK: Neck is supple, no JVD, no lymphadenopathy. CHEST: Chest is clear to auscultation and percussion. CARDIAC: RRR ABDOMEN: Soft, distended with large amount of ascites, nontender; hepatosplenomegaly; bowel sounds are present in all four quadrants. EXTREMITIES: No clubbing, cyanosis, or edema. SKIN: Normal; no rash; no jaundice. MANAGER BUILDING: No focal deficits; alert and oriented times three. (Samia Medina) Assessment and Plan Plan ASSESSMENT: - Upper GIB with hematemesis with coffee ground emesis and melena. Symptoms started yesterday. S/P recent evaluation with EGD (10/21/16)---> bile present in stomach suctioned, gastritis antrum, duodenitis second portion biopsy, extrinsic compression, esopahgeal varices-grade 1, retroflexed views revealed a hiatal hernia, pathology with small intestinal mucosal biopsy with acute nonspecific duodenitis ileitis, gastric antral mucosal biopsy with severe chronic gastritis exhibiting extensive intestinal metaplasia negative for dysplasia, kofi stain negative for helicobacter Colonoscopy (10/23/16)-----> polyp sessile midtransverse-hot snare polypectomy-6 mm biopsy of base, due to large amount of stool unclear if retrieved or not in the trap, retroflexed views revealed small internal hemorrhoids, revealed no abnormalities of the rectum. Pathology with mid transverse colon with tubular adenoma. CT Scan abdomen and pelvis (10/21/16) with and without contrast with large amount of abdominal ascites, wall thickening within the splenic flexure, colonoscopy recommended to exclude underlying pathology , heterogeneous liver likely cirrhosis. Denies current ETOH use and does not take NSAIDs. He was taking protonix, but states he ran out a few weeks ago. Protonix Gtt. 7.9/23.1. - Anemia. HH 7.9/23.1. - Ascites. Had paracentesis back in October. Was on Furosemide and Spironolactone, but stopped taking when he ran out. - Liver cirrhosis with hx of esophageal varices. Denies current ETOH use. LFTs stable. - GERD. PPI. Ran out of his PPI about a month ago - CAD, HTN, per primary PLAN: - Plan for egd with possible band ligation today - Obtain consents - NPO - Protonix Gtt - Monitor HH - Transfuse as necessary - Cont. Furosemide - Cont. Spironolactone - Consider paracentesis after EGD if no improvement with diuretics - Supportive care - Further recommendations to follow based on results of above - Pt seen and examined by Dr. Kong and myself and this note is written on his behalf (Samia Medina) Physician Comments Patient seen and examined Agree with above Continue with current supportive care Monitor labs and transfuse as needed EGD next (Sb Kong MD) Samia Medina Dec 11, 2016 09:27 Sb Kong MD Dec 11, 2016 13:16
[2016-12-11] MEDS ORDERED: LACTATED RINGER'S 1,000 ML BAG XX ONE (12:00)
[2016-12-11] MEDS ORDERED: PROPOFOL 200 MG/20 ML AMP IV ONE (12:50)
--- NOTE | 2016-12-11 13:18 | PD.PROCEDR ---
GI Procedure PROCEDURE PERFORMED EGD with banding INDICATION FOR PROCEDURE GI bleed PROCEDURE: The procedure, risks and benefits were discussed with Mr. Simons and informed consent was obtained. Anesthesia sedated him with Diprivan. He was placed in the left lateral decubitus position. EGD: The Pentax videoscope was introduced through the oropharynx and advanced to the second portion of the duodenum under direct visualization. Retroflexion was performed in the stomach. FINDINGS: Esophagus there were 3 grade 2 esophageal varices one with a red well sign in the distal esophagus 4 bands were applied Stomach there was some mucosal edema but no ulcers no erosions no varices and no active bleeding this is a picture that's consistent with portal hypertensive gastropathy The duodenum this was normal ESTIMATED BLOOD LOSS: None SPECIMENS REMOVED: None COMPLICATIONS: None IMPRESSION: Esophageal varices Portal gastropathy PLAN: Supportive care Monitor labs and transfuse as needed Sb Kong MD Dec 11, 2016 13:18
[2016-12-11 17:59] LABS: AUTOMATED NEUTROPHIL # 3.3 TH/MM3 (1.8-7.7); BASOPHIL # 0.1 TH/MM3 (0-0.2); BASOPHIL % 1.9 % (0.0-2.0); EOSINOPHIL # 0.2 TH/MM3 (0-0.4); EOSINOPHIL % 3.4 % (0.0-4.0); HEMATOCRIT 31.1 % (39.0-51.0); HEMO FLAGS DIFF FINAL; LYMPH % 19.9 % (9.0-44.0); MEAN CELL VOLUME 91.9 FL (80.0-100.0); MEAN CORPUSCULAR HEMOGLOBIN 31.1 PG (27.0-34.0); MEAN CORPUSCULAR HGB CONC 33.8 % (32.0-36.0); MONO % 8.3 % (0.0-8.0); NEUT % 66.5 % (16.0-70.0); PLATELET COUNT 223 TH/MM3 (150-450); RED BLOOD COUNT 3.38 MIL/MM3 (4.50-5.90); RED CELL DISTRIBUTION WIDTH 16.9 % (11.6-17.2)
[2016-12-11 18:19] LABS: BICARBONATE 26.5 MEQ/L (21.0-32.0); POTASSIUM 4.2 MEQ/L (3.5-5.1)
--- NOTE | 2016-12-11 22:41 | EKG ---
Date Performed: 12/10/2016 Time Performed: 16:35:41 PTAGE: 61 years EKG: Sinus rhythm MODERATE ST DEPRESSION ABNORMAL ECG PREVIOUS TRACING : 10/19/2016 21.05 Compared to prior tracing no significant change DOCTOR: Con Mittal Interpretating Date/Time 12/11/2016 22:38:00
[2016-12-12] VITALS: BP 116/66; PULSE 70; RESP 20; TEMP 97.5; O2SAT 93
[2016-12-12] MEDS: SODIUM CHLOR 0.9% 1000 ML INJ 1,000 ML IV SCH ×2 (01:15→09:34)
[2016-12-12] MEDS: OCTREOTIDE INJ 500 MCG in SODIUM CHLORID 0.9% 500 ML INJ 500 ML IV SCH ×2 (01:15→09:37)
[2016-12-12 04:00] VITALS: BP 123/74; PULSE 75; RESP 20; TEMP 97.4; O2SAT 98
[2016-12-12 04:46] LABS: AUTOMATED NEUTROPHIL # 4.4 TH/MM3 (1.8-7.7); BASOPHIL # 0.1 TH/MM3 (0-0.2); BASOPHIL % 1.4 % (0.0-2.0); EOSINOPHIL # 0.2 TH/MM3 (0-0.4); EOSINOPHIL % 2.7 % (0.0-4.0); HEMO FLAGS DIFF FINAL; LYMPH % 18.6 % (9.0-44.0); LYMPHOCYTE # 1.2 TH/MM3 (1.0-4.8); MEAN CELL VOLUME 92.2 FL (80.0-100.0); MEAN CORPUSCULAR HEMOGLOBIN 30.4 PG (27.0-34.0); MONO % 7.1 % (0.0-8.0); NEUT % 70.2 % (16.0-70.0); PLATELET COUNT 222 TH/MM3 (150-450); RED BLOOD COUNT 3.47 MIL/MM3 (4.50-5.90); RED CELL DISTRIBUTION WIDTH 17.5 % (11.6-17.2); WHITE BLOOD COUNT 6.3 TH/MM3 (4.0-11.0)
[2016-12-12 05:05] LABS: ALKALINE PHOSPHATASE 66 U/L (45-117); ALT (GPT) 24 U/L (12-78); ANION GAP 9 MEQ/L (5-15); AST (GOT) 117 U/L (15-37); BICARBONATE 24.5 MEQ/L (21.0-32.0); BLOOD UREA NITROGEN 18 MG/DL (7-18); CHLORIDE 107 MEQ/L (98-107); GLOMERULAR FILTRATION RATE 86 ML/MIN (>89); POTASSIUM 3.6 MEQ/L (3.5-5.1); SODIUM (NA) 140 MEQ/L (136-145); TOTAL BILIRUBIN ADULT 1.4 MG/DL (0.2-1.0)
--- NOTE | 2016-12-12 07:56 | HHI.PR ---
Subjective Remarks Feels much better. However say belly is filling up more and is very distended. Patient is noncompliant with OP f/u and will do therapeutic paracenthesis and patient can be DC later today . No fever or chills/ No n/v/d/c. Objective Vitals Vital Signs Date Time Temp Pulse Resp B/P Pulse Ox O2 Delivery O2 Flow Rate FiO2 12/12/16 04:00 97.4 75 20 123/74 98 12/12/16 00:00 97.5 70 20 116/66 93 12/11/16 20:00 97.5 94 22 122/60 93 12/11/16 16:30 71 16 149/91 97 Room Air 12/11/16 16:15 67 16 143/79 97 Room Air 12/11/16 15:55 69 12 147/79 97 Room Air 12/11/16 15:30 67 15 139/81 95 Room Air 12/11/16 13:21 81 16 142/90 95 12/11/16 13:16 68 16 140/83 96 12/11/16 13:11 97.3 72 16 116/69 95 12/11/16 10:20 97.7 53 18 137/75 96 12/11/16 10:00 52 20 142/73 99 Room Air I/O 12/11/16 12/11/16 12/11/16 12/12/16 12/12/16 12/12/16 07:00 15:00 23:00 07:00 15:00 23:00 Intake Total 500 ml 450 ml 2048 ml 1438 ml Output Total 700 ml Balance 500 ml 450 ml 2048 ml 738 ml Intake Oral 120 ml 240 ml IV Total 450 ml 1928 ml 1198 ml Packed Cells 500 ml Output Urine Total 700 ml # Voids 1 # Bowel Movements 0 1 Result Diagram: 12/12/16 0413 12/12/16 0413 Imaging Last Impressions Chest X-Ray 12/10/161634 Signed Impressions: Service Date/Time: Saturday, December 10, 2016 17:00 - CONCLUSION: 1. Discoid atelectasis within the left lung base. 2. Suboptimal inspiration. Buddy Valentine MD Abdomen X-Ray 12/10/161634 Signed Impressions: Service Date/Time: Saturday, December 10, 2016 17:02 - CONCLUSION: Paucity of bowel gas which often times is related to diffuse ascites. Clinical correlation is recommended. Buddy Valentine MD Objective Remarks GENERAL: This is a well-nourished, well-developed patient, in no apparent distress. SKIN: Pale. No rashes, ecchymoses or lesions. Cool and dry. HEAD: Atraumatic. Normocephalic. No temporal or scalp tenderness. EYES: Pupils equal round and reactive. Extraocular motions intact. No scleral icterus. No injection or drainage. ENT: Nose without bleeding, purulent drainage or septal hematoma. Throat without erythema, tonsillar hypertrophy or exudate. Uvula midline. Airway patent. NECK: Trachea midline. No JVD or lymphadenopathy. Supple, nontender, no meningeal signs. CARDIOVASCULAR: Regular rate and rhythm without murmurs, gallops, or rubs. RESPIRATORY: Clear to auscultation. Breath sounds equal bilaterally. No wheezes , rales, or rhonchi. GASTROINTESTINAL: Abdomen soft, mild tenderness on palpation RUQ, ascites present, distended. No guarding. MUSCULOSKELETAL: Extremities without clubbing, cyanosis, or edema. No joint tenderness, effusion, or edema noted. No calf tenderness. Negative Homans sign bilaterally. NEUROLOGICAL: Awake and alert. Cranial nerves II through XII intact. Motor and sensory grossly within normal limits. Five out of 5 muscle strength in all muscle groups. Normal speech. A/P Assessment and Plan GI Bleed: H/o Alcohol Abuse, Cirrhosis and Esophageal Varices, previous admissions with GI Bleed s/p EGD w/ medium varies and band ligation x3. H/H stable no transfusion at this time. GI consulted, plan is for EGD in am. NPO, IVF. Continue Protonix/Octreotide gtt. Add incentive spirometry H/H dropped but not significantly. EGD 12/11: Esophageal varices/ Portal gastropathy. Conservative management per GI . Moniotr and transfuse as need. H/H is stable. Worsening ascites. Plan for therapeutic paracenthesis today as ascites is worse. Alcohol Abuse: H/o Alcohol Abuse. Says he cut down and not drinking much. Tobacco Abuse: Pt counselled on the need to quit. Ativan prn. DVT Prophylaxis: SCD/TEDs. Pharmacologic contraindication secondary to acute GI Bleed. CM for d/c planning as needed. Code Status full code Discussed Condition With patient, nurse Can have paracenthesis today and can be Dc home . To followup as OP with PCP and consultants. Patient says he lives on $200 /month and can't afford meds or follow up. Discussed with the CM . To followup with Dr Fallon at the [facility]. Cele Gutierrez MD Dec 12, 2016 07:56
[2016-12-12 08:00] VITALS: BP 130/62; PULSE 72; RESP 18; TEMP 98.2; O2SAT 94
[2016-12-12] MEDS: LACTOBACILLUS ACIDOPHILUS TAB PO SCH (09:34)
[2016-12-12] MEDS: PANTOPRAZOLE SOD 40 MG DELAYED RELEASE TAB PO SCH (09:34)
[2016-12-12] MEDS: FUROSEMIDE 20 MG TAB PO SCH (09:34)
[2016-12-12] MEDS: SPIRONOLACTONE 25 MG TAB PO SCH (09:34)
[2016-12-12] MEDS: SODIUM CHLORIDE 0.9% FLUSH 5 ML FLUSH FLUSH SCH (09:38)
--- NOTE | 2016-12-12 10:11 | HHI.DCPOC ---
Discharge Care Plan Goals to Promote Your Health * To prevent worsening of your condition and complications * To maintain your health at the optimal level Directions to Meet Your Goals Take your medications as prescribed Follow your dietary instruction Follow activity as directed Keep your appointments as scheduled Take your immunizations and boosters as scheduled If your symptoms worsen call your PCP, if no PCP go to Urgent Care Center or Emergency Room Smoking is Dangerous to Your Health. Avoid second hand smoke Call the 24-hour hour crisis hotline for domestic abuse at Clee Gutierrez MD Dec 12, 2016 10:11
--- NOTE | 2016-12-12 10:13 | HHI.FF ---
Face to Face Verification Diagnosis: (1) Hepatomegaly (2) Tachycardia (3) Ascites of liver (4) Cirrhosis (5) Tobacco abuse (6) GI bleed Physical Therapy Order: Evaluate and Treat Home Health Nursing Order: Medical education Signs/symptoms of disease process Medication education-adverse effect Nursing assessment with vital signs I have seen patient Alexey Simons, JAMES on 12/12/16. My clinical findings support the need for the requested home health care services because: Ltd mobility - disease progression I certify that my clinical findings support that this patient is homebound because: Post-op weakness Cele Gutierrez MD Dec 12, 2016 10:13
[2016-12-12] MEDS ORDERED: NORC5TAB PO (10:58)
[2016-12-12] MEDS ORDERED: FURO20TA PO (11:21)
[2016-12-12] MEDS ORDERED: PANT40TA3 PO (11:21)
[2016-12-12] MEDS ORDERED: SPIR25 PO (11:21)
--- NOTE | 2016-12-12 11:23 | HHI.DS ---
Discharge Summary Admission Date Dec 10, 2016 at 17:57 Discharge Date: Dec 12, 2016 Admitting Diagnosis GI bleed (1) Acute blood loss anemia ICD Code: D62 Diagnosis: Principal (2) Alcohol abuse ICD Code: F10.10 Diagnosis: Secondary (3) Cirrhosis ICD Code: K74.60 Diagnosis: Secondary (4) Hyperglycemia ICD Code: R73.9 Diagnosis: Secondary (5) Hyponatremia ICD Code: E87.1 Diagnosis: Secondary (6) Tobacco abuse ICD Code: Z72.0 (7) GI bleed ICD Code: K92.2 Diagnosis: Secondary (8) Tachycardia ICD Code: R00.0 Diagnosis: Secondary (9) Ascites of liver ICD Code: R18.8 Diagnosis: Principal Procedures EGD 12/11/16 paracentesis 12/12/16 Brief History - From Admission 61-year-old male with PMH of Alcohol Abuse, alcoholic Cirrhosis, gastric esophageal varices with band ligation in the past, h/o multiple GI Bleed, CAD with stent placement and Tobacco Abuse who came to the ER with GIB. 61-year-old male with history of alcohol cirrhosis, HTN, GI bleed, coronary artery disease with stent placement, tobacco dependency, presents to the emergency department for evaluation of GI bleed. Patient reports beginning having alphonso red emesis this morning as well as black tarry stools. Patient was seen and evaluated, discharged October 23, 2016 following a GI bleed. He has been unable to follow-up and has not filled any medication since hospitalization, stating that he cannot afford them. He states he has been increasingly weak, absent the dizziness, some mild shortness of breath feels as though his abdomen is pushing up on his diaphragm. Patient has a rotund abdomen and states it has been worsening since discharge in October. Reports no fever or chills. He does report abdominal pain, generalized, constant. He has no other symptoms to report. H/H stable, GI consulted Dr Kong recommends NPO and will do EGD tomorrow. Started IV protonix and octreotide. Patient says he started vomiting blood 1 hr [employer]ER[employer]. 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 And another cup while in ED. Says he is not vomiting much since IV meds started. CBC/BMP: 12/12/16 0413 12/12/16 0413 Significant Findings Laboratory Tests Test 12/10/16 12/10/16 12/10/16 12/11/16 16:15 16:45 21:10 05:00 Ammonia 46 MCMOL/L (11-32) Red Blood Count 2.70 MIL/MM3 (4.50-5.90) Hemoglobin 8.8 GM/DL 7.9 GM/DL (13.0-17.0) (13.0-17.0) Bedside Hemoglobin 8.8 G/DL (12.0-17.0) Hematocrit 25.7 % 23.1 % (39.0-51.0) (39.0-51.0) Bedside Hematocrit 26.0 % (38.0-51.0) Prothrombin Time 13.4 SEC (9.8-11.6) Blood Urea Nitrogen 21 MG/DL (7-18) Bedside Creatinine 0.5 MG/DL (0.8-1.3) Bedside Glucose 98 MG/DL (60-95) Calcium Level 8.2 MG/DL (8.5-10.1) Albumin 1.9 GM/DL (3.4-5.0) Urine Turbidity HAZY (CLEAR) Urine Mucus MANY /lpf (OCC) Test 12/11/16 12/12/16 17:43 04:13 Red Blood Count 3.38 MIL/MM3 3.47 MIL/MM3 (4.50-5.90) (4.50-5.90) Hemoglobin 10.5 GM/DL 10.6 GM/DL (13.0-17.0) (13.0-17.0) Hematocrit 31.1 % 32.0 % (39.0-51.0) (39.0-51.0) Monocytes (%) (Auto) 8.3 % (0.0-8.0) Blood Urea Nitrogen 20 MG/DL (7-18) Calcium Level 8.0 MG/DL 8.1 MG/DL (8.5-10.1) (8.5-10.1) Red Cell Distribution Width 17.5 % (11.6-17.2) Neutrophils (%) (Auto) 70.2 % (16.0-70.0) Estimat Glomerular Filtration 86 ML/MIN (>89) Rate Total Bilirubin 1.4 MG/DL (0.2-1.0) Aspartate Amino Transf 117 U/L (15-37) (AST/SGOT) Albumin 2.1 GM/DL (3.4-5.0) Imaging Last Impressions Chest X-Ray 12/10/16 1635 Signed Impressions: Service Date/Time: Saturday, December 10, 2016 17:00 - CONCLUSION: 1. Discoid atelectasis within the left lung base. 2. Suboptimal inspiration. Buddy Valentine MD Abdomen X-Ray 12/10/16 1635 Signed Impressions: Service Date/Time: Saturday, December 10, 2016 17:02 - CONCLUSION: Paucity of bowel gas which often times is related to diffuse ascites. Clinical correlation is recommended. Buddy Valentine MD PE at Discharge GENERAL: This is a well-nourished, well-developed patient, in no apparent distress. SKIN: Pale. No rashes, ecchymoses or lesions. Cool and dry. HEAD: Atraumatic. Normocephalic. No temporal or scalp tenderness. EYES: Pupils equal round and reactive. Extraocular motions intact. No scleral icterus. No injection or drainage. ENT: Nose without bleeding, purulent drainage or septal hematoma. Throat without erythema, tonsillar hypertrophy or exudate. Uvula midline. Airway patent. NECK: Trachea midline. No JVD or lymphadenopathy. Supple, nontender, no meningeal signs. CARDIOVASCULAR: Regular rate and rhythm without murmurs, gallops, or rubs. RESPIRATORY: Clear to auscultation. Breath sounds equal bilaterally. No wheezes , rales, or rhonchi. GASTROINTESTINAL: Abdomen soft, mild tenderness on palpation RUQ, ascites present, distended. No guarding. MUSCULOSKELETAL: Extremities without clubbing, cyanosis, or edema. No joint tenderness, effusion, or edema noted. No calf tenderness. Negative Homans sign bilaterally. NEUROLOGICAL: Awake and alert. Cranial nerves II through XII intact. Motor and sensory grossly within normal limits. Five out of 5 muscle strength in all muscle groups. Normal speech. Hospital Course GI Bleed: H/o Alcohol Abuse, Cirrhosis and Esophageal Varices, previous admissions with GI Bleed s/p EGD w/ medium varies and band ligation x3. H/H stable no transfusion at this time. GI consulted, plan is for EGD in am. NPO, IVF. Continue Protonix/Octreotide gtt. Add incentive spirometry H/H dropped but not significantly. EGD 12/11: Esophageal varices/ Portal gastropathy. Conservative management per GI . Moniotr and transfuse as need. H/H is stable. Worsening ascites. Plan for therapeutic paracenthesis today as ascites is worse. Alcohol Abuse: H/o Alcohol Abuse. Says he cut down and not drinking much. Tobacco Abuse: Pt counselled on the need to quit. Ativan prn. DVT Prophylaxis: SCD/TEDs. Pharmacologic contraindication secondary to acute GI Bleed. CM for d/c planning as needed. Code Status full code Discussed Condition With patient, nurse Can have paracenthesis today and can be Dc home . To followup as OP with PCP and consultants. Patient says he lives on $200 /month and can't afford meds or follow up. Discussed with the CM . To followup with Dr Fallon at the [facility]. Pt Condition on Discharge: Fair Discharge Disposition: Disch w/ Home Health Serv Discharge Time: > 30 minutes Discharge Instructions DIET: Follow Instructions for: As Tolerated, No Restrictions Activities you can perform: Regular-No Restrictions Follow up Referrals: Appointment for Follow Up - 1 Week with Nina Fallon MD Gastroenterology - 12/26/16 with Sb Kong MD PCP Follow-up - 3-5 Days New Medications: Hydrocodone-Acetaminophen ([place]) 5-325 mg Tab 1 TAB PO Q8HR PRN PAIN #12 Ref 0 TAB Continued Medications: Furosemide (Furosemide) 20 Mg Tab 20 MG PO DAILY ascites Days 30 TAB (This prescription has been renewed) Lactobacillus Acidophilus (Probiotic) 1 Cap Cap 1 CAP PO TIDAC Nutritional Supplement #90 Ref 0 CAP Pantoprazole (Pantoprazole) 40 Mg Tab 40 MG PO DAILY gi bleed #30 TAB (This prescription has been renewed) Spironolactone (Aldactone) 25 Mg Tab 25 MG PO DAILY ascites #30 Ref 0 TAB (This prescription has been renewed) Wheat Dextrin (Benefiber) 1 Tab 1 TAB PO DAILY Constipation Days 30 Ref 0 TAB Cele Gutierrez MD Dec 12, 2016 11:23
[2016-12-12 12:00] VITALS: BP 127/68; PULSE 75; RESP 18; TEMP 98.4; O2SAT 95
[2016-12-12 15:35] VITALS: BP 131/71; PULSE 54; RESP 14; TEMP 97; O2SAT 95
[2016-12-12] MEDS ORDERED: ALBUMIN HUMAN 25% 25GM-W/12.5GM FOR 37.5GM IV ONE (16:15)
[2016-12-12] MEDS ORDERED: ALBUMIN HUMAN 25% 12.5GM-W/25GM FOR 37.5GM IV ONE (16:15)
--- NOTE | 2016-12-13 07:13 | RADRPT ---
EXAM DATE/TIME: 12/12/2016 15:28 [facility] COMPARISON: US GUIDED ABD PARACENTESIS, October 22, 2016, 15:33. INDICATIONS : Ascites. Cirrhosis. MEDICAL HISTORY : Hypertension. Cirrhosis. Hepatomegally. Varices. Gall bladder disease. SURGICAL HISTORY : Cardiac stents. ENCOUNTER: Subsequent ACUITY: 2 months PAIN SCORE: 3/10 LOCATION: Right lower quadrant FLUID: Total volume of 6000 cc of clear, yellow fluid was removed. Fluid was discarded. Paracentesis was therapeutic only. Post procedure scanning reveals no hematoma or other complication. TECHNIQUE: 1. Ultrasound guidance for abdominal paracentesis. 2. Paracentesis. The risks, benefits, and alternatives to ultrasound guided paracentesis were explained to the patient in detail including the risk of bleeding and infection. Written and verbal informed consent was obt ained. With the patient on the ultrasound table, ultrasound imaging was used to select the most appropriate approach for paracentesis. Overlying skin was prepped and draped in the usual sterile fashion and wi th a local anesthetic, a dermatotomy was made with an 11 blade scalpel. A 6 [place] [id number] ca theter was introduced into the peritoneal cavity and fluid was collected. The patient tolerated the procedure well and left the ultrasound suite in stable condition. CONCLUSION: Uncomplicated ultrasound guided paracentesis. Edwin Acosta MD on December 13, 2016 at 7:11 Board Certified Radiologist. This report was verified electronically.
[2016-12-24] MEDS ORDERED: SPIR25 PO (15:23)
[2016-12-24] MEDS ORDERED: FURO20TA PO (15:23)
[2016-12-24] MEDS ORDERED: PANT40TA3 PO (15:23)
[2016-12-24] MEDS ORDERED: LACT10SO PO (15:24)
== END 2016-12-12 19:22 | disposition home or self-care (01) | DRG 378 ==
LOC: NEPE 16:31 → NEDA 17:57 → NEDH 21:57 → N07B 12-11 17:02
PROVIDERS: ADMIT Hospitalist; ATTEND Hospitalist
PROC: 30253N1 (ICD-10-PCS; 2016-12-10)
PROC: 06L34CZ Occlusion of Esophageal Vein with Extraluminal Device, Percutaneous Endoscopic Approach (ICD-10-PCS; 2016-12-11)
PROC: 0W9G3ZZ Drainage of Peritoneal Cavity, Percutaneous Approach (ICD-10-PCS; principal; 2016-12-12)
DX: K92.2 Gastrointestinal hemorrhage, unspecified (principal); D62 Acute posthemorrhagic anemia; K70.31 Alcoholic cirrhosis of liver with ascites; E87.1 Hypo-osmolality and hyponatremia; J98.11 Atelectasis; F10.10 Alcohol abuse, uncomplicated; I10 Essential (primary) hypertension; I25.10 Atherosclerotic heart disease of native coronary artery without angina pectoris; I85.00 Esophageal varices without bleeding; K21.9 Gastro-esophageal reflux disease without esophagitis; K31.89 Other diseases of stomach and duodenum; K92.0 Hematemesis; F17.200 Nicotine dependence, unspecified, uncomplicated; Z86.010 Personal history of colon polyps; Z95.5 Presence of coronary angioplasty implant and graft; Z91.19 Patient's noncompliance with other medical treatment and regimen; R19.7 Diarrhea, unspecified
CPT/HCPCS: 36430; 49083; 71010; 74020; 80048; 80053; 80320; 81001; 82140; 82435; 82565; 82947; 83690; 84132; 84295; 84520; 85014; 85018; 85025; 85610; 85730; 86850; 86900; 86901; 86920; 93005; 94150; 96374; 96376; C1729; C9113; J2354; J7030; J7040; J7050; J7120; P9016; P9047